=== PATIENT | female | born 1985 | race Caucasian/White ===

== ENCOUNTER 2019-05-20 12:55 | Emergency (ER) | payer OTHER, SELFPAY ==
--- NOTE | ~2019-05-20 | CT_ITS ---
EXAMINATION: CT facial bones w con DATE: 05/20/2019 15:19 INDICATION: Right nose pain. Right facial swelling. TECHNIQUE: Computed tomography (CT) of the facial bones and maxillofacial region was performed with 7 5 mL Omnipaque 350 intravenous contrast. Automated exposure control and iterative reconstruction tech [employer] were employed. The dose-length product was 512.39 mGy-cm. COMPARISON: None. FINDINGS: There is subcutaneous fat stranding inferior to the nose where there is a 6 x 10 mm subcuta neous fluid collection to the right of midline. The orbits are normal. There are no pathologically en larged lymph nodes. There is rightward deviation of the nasal septum. There is mild mucosal thickenin g in the paranasal sinuses. The patient is edentulous. IMPRESSION: 1. 6 x 10 mm subcutaneous abscess inferior to the nose to the right of midline. Reviewed, dictated and finalized at location A.
[2019-05-20 13:00] VITALS: BP 134/84; PULSE 103; RESP 18; TEMP 36.6; O2SAT 100
--- NOTE | 2019-05-20 13:08 | ED.GENADULT ---
HPI - General Adult General Chief complaint: Unspecified Stated complaint: facial swelling Time Seen by Provider: 05/20/19 13:06 Source: patient and RN notes reviewed Mode of arrival: other Limitations: no limitations History of Present Illness HPI narrative: Pt is a 33 y/o female who presents to the ED with c/o sharp right sided facial pain with swelling that began 3 days ago (05/17/19). Pt states that her pain initially began in her right nostril and then radiated to her lips. Pt rates her pain as a 9/10 pain. She denies any alleviating and aggravating factors. Pt also reports difficulty sleeping and a resolved fever, but denies throat swelling, tongue swelling, nausea, vomiting, chest pain, SOB, nasal drainage, and dysphagia. MD complaint: Facial Pain with Swelling Onset (ago): day(s) (3) Location: face Severity: severe Severity scale (1-10): 9 Quality: sharp Pain Consistency: constant Relieving factors: none Exacerbating factors: none Associated symptoms: fever/chills (resolved) and other (difficulty sleeping) Related Data Home Medications Medication Instructions Recorded Confirmed Admelog SoloStar U-100 Insulin 05/20/19 Basaglar KwikPen U-100 Insulin 05/20/19 Allergies Allergy/AdvReac Type Severity Reaction Status Date / Time Penicillins Allergy Unknown Verified 05/20/19 13:06 Review of Systems Review of Systems: All systems reviewed & are unremarkable except as noted in HPI and below Constitutional: Constitutional: Reports difficulty sleeping and Reports fever(s) (resolved) ENT: Denies dysphagia, Reports facial pain (right side, with swelling), Denies nasal discharge, Denies throat swelling and Denies tongue swelling Cardiovascular: Cardiovascular: Denies chest pain Respiratory: Respiratory: Denies dyspnea Gastrointestinal: Gastrointestinal: Denies nausea and Denies vomiting [facility] Past Medical History Medical History (Updated 05/21/19 @ 00:00 by Jhony Cedeno) Type I diabetes mellitus Surgical History Surgical History (Updated 05/20/19 @ 13:28 by Chaparrita Champagne) Surgical history unknown Social History Social History (Updated 05/20/19 @ 13:28 by Chaparrita Champagne) Smoking status: Unknown if ever smoked Gender identity (if verbalized by the patient): Female Exam Const: General: no acute distress and well developed Orientation/consciousness: oriented to person, oriented to place, oriented to time and patient oriented x3 HENMT: Head: normocephalic Ears: external ears normal General nose exam: Other nasal findings present (mild tenderness and swelling to lateral/inferior aspect to right nare) Eyes: General: appearance normal, both eyes and all related structures Conjunctivae: conjunctivae normal Neck: Neck: normal visual inspection and full ROM Resp: Effort & Inspection: normal respiratory effort Skin: General skin exam: normal color and turgor normal Neuro: General: oriented to person, oriented to place, oriented to time and patient oriented x3 Cognition (Neuro): normal cognition Extrem: General: normal to inspection, full ROM and no pedal edema Psych: Appearance: grossly normal Mental Status: mental status grossly normal Affect: normal affect Course Consultations Consultation #1: Discussed with Dr. Franklin, who reviewed CT images and recommends discharge on antibiotics and follow up with him. Date: 05/20/19 Time: 16:08 Vital Signs Vital signs: Vital Signs Temperature 36.6 C 05/20/19 13:00 Pulse Rate 103 H 05/20/19 13:00 Respiratory Rate 18 05/20/19 13:00 Blood Pressure 134/84 05/20/19 13:00 Pulse Oximetry 100 05/20/19 13:00 Temperature 36.6 C 05/20/19 13:00 Pulse Rate 89 05/20/19 16:56 Respiratory Rate 18 05/20/19 16:56 Blood Pressure 142/88 H 05/20/19 16:56 Pulse Oximetry 98 05/20/19 16:56 Medical Decision Making Vital Signs Vital Signs: Vital Signs Temperature 36.6 C 05/20/19 13:00 Pulse Rate 103 H 05/19
[2019-05-20 13:41] LABS: Basophils Percent Auto 0.5 % (0.2-1.2); Eosinophils Absolute Auto 0.1 K/mm3 (0-0.3); Eosinophils Percent Auto 1.6 % (0-4.4); Hematocrit 39.7 % (37.0-47.0); Hemoglobin 13.5 g/dL (12.0-15.0); Immature Granulocyte Absolute 0.03 K/mm3 (0.00-0.031); Immature Granulocyte Percent A 0.4 % (0-0.5); Immature Platelet Fraction Pct 4.4 % (0.9-11.2); Lymphocytes Absolute Auto 1.57 K/mm3 (0.9-3.2); Lymphocytes Percent Auto 19.5 % (18.3-44.2); Mean Corpuscular Hemoglobin 28.4 pg (26-34); Mean Corpuscular Volume 83.4 fl (80-100); Mean Platelet Volume 11.3 fl (7.4-10.4); Monocytes Absolute Auto 0.4 K/mm3 (0.1-0.6); Monocytes Percent Auto 4.5 % (2.6-8.5); Neutrophils Absolute Auto 5.9 K/mm3 (1.3-6.7); Neutrophils Percent Auto 73.5 % (45.5-73.1); Platelet Count Result 169 k/mm3 (150-375); Red Blood Count 4.76 M/mm3 (4.2-5.4); Red Cell Distribution Width 13.4 % (11.5-14.5); White Blood Count 8.1 K/mm3 (4.5-10.0)
[2019-05-20 13:52] LABS: Blood Urea Nitrogen 11 mg/dL (7-17); Calcium 9.2 mg/dL (8.4-10.2); Carbon Dioxide 23 mmol/L (22-30); Chloride 98 mmol/L (98-107); Estimated CRCL calculation 170 ml/min; Estimated Glomerular Filt Rate > 60; Glucose 407 mg/dL (65-105); Potassium 4.9 mmol/L (3.4-5.0); Sodium 132 mmol/L (137-145)
[2019-05-20 14:01] LABS: Add Urine Microscopic? YES; Appearance Urine Cloudy (Clear); Bilirubin Urine Negative (Negative); Blood Urine Negative (Negative); Color Urine Yellow (Yellow); Glucose Urine UA 3+ mg/dL (Negative); Ketones Urine 2+ mg/dL (Negative); Leukocyte Esterase Ur 2+ LEU/UL (Negative); Mucus Urine Rare /lpf; Nitrate Urine Positive (Negative); Protein Urine 2+ mg/dL (Negative); Squamous Epithelial Cell Urine Rare /hpf (Few); Urobilinogen Urine Negative mg/dL (<2.0); WBC Urine >75 /hpf
[2019-05-20 14:23] LABS: Specific Grav Ur 1.035 (1.001-1.035)
[2019-05-20] MEDS: SODIUM CHLORIDE 0.9% IV 50 ML 999 ML (14:41)
[2019-05-20] MEDS: INSULIN ASPART (*BKC) 100 UNITS/ML 8 UNITS SUB-Q (14:41)
[2019-05-20 16:55] LABS: Glucose Point of Care 319 (65-105)
[2019-05-20 16:56] VITALS: BP 142/88; PULSE 89; RESP 18; O2SAT 98
== END 2019-05-20 16:57 | disposition home or self-care (01) ==
PROVIDERS: Emergency Provider Emergency Medicine; PCP Family Medicine
DX: J34.0 Abscess, furuncle and carbuncle of nose (principal); E10.9 Type 1 diabetes mellitus without complications; Z79.4 Long term (current) use of insulin
CPT/HCPCS: 36415; 70487; 80048; 81001; 81025; 85025; 85055; 87077; 87086; 87088; 87186; 99284; J1815; Q9967